=== PATIENT | female | born 1960 | race Caucasian/White ===

== ENCOUNTER → 2017-10-29 | Day surgery (SDC) | payer OTHER ==
[~2017-10-29] VITALS: Ht 160 cm; Wt 70.3 kg
--- NOTE | 2017-10-29 08:08 | Operative Report ---
Operative/Inv Procedure Report Surgery Date: 10/29/17 Name of Procedure: Right carpal tunnel release Pre-Operative Diagnosis: Right carpal tunnel syndrome Post-Operative Diagnosis: Same Estimated Blood Loss: scant Surgeon/Hospital Scientist: Emmett Silva MD Anesthesia: local monitored anesthesi IV Fluids: See anesthesia record Implants: None Drains: None Specimens: None Tourniquet: 13 minutes Complications: None Condition: Stable Operative Indication: Patient is a pleasant 57-year-old [id number] female who has documented carpal tunnel syndrome on EMG nerve conduction studies. She is failed conservative treatment including night splints and use of Kenalog injections into the carpal tunnel. She is indicated for surgical decompression of median nerve. Operative/Procedure Note Note: Once informed consent was obtained and the correct limb was identified the patient brought to operative room placed on table supine position. After the administration of sedation the patient had local anesthesia infiltrated around the planned incision site of the right hand. The right hand was prepped and draped in usual sterile fashion after placement of tourniquet. The tourniquet was inflated to 250 mmHg. An incision was made in line with the radial border of the fourth ray. Sharp dissection carried down through skin and subcutaneous tissue and fat. The deep palmar fascia was incised. A [place] elevator was then placed deep to the transverse carpal ligament to protect the nerve and tendons. The ligament was incised sharply with a #15 blade without, location. This was carried out [place] and distally for complete release. The wound was copiously irrigated with sterile saline. The incision was closed with 3-0 nylon interrupted sutures of sterile dressings applied. Patient was awakened taken recovery in stable condition.
== END ==
LOC: STS 02:39
DX: G56.01 Carpal tunnel syndrome, right upper limb (principal); I10 Essential (primary) hypertension; K21.9 Gastro-esophageal reflux disease without esophagitis
CPT/HCPCS: J0690; J2001; J2250; J3490

== ENCOUNTER → 2018-01-07 | Day surgery (SDC) | payer OTHER ==
--- NOTE | 2018-01-07 08:12 | Operative Report ---
Operative/Inv Procedure Report Surgery Date: 01/07/18 Name of Procedure: Left carpal tunnel release Pre-Operative Diagnosis: Left carpal tunnel syndrome Post-Operative Diagnosis: Same Estimated Blood Loss: none Surgeon/Organ Builder: Emmett iSlva MD Anesthesia: moderate sedation IV Fluids: See anesthesia record Implants: None Drains: None Specimens: None Tourniquet: 13 minutes Complications: None Condition: Stable Operative Indication: Patient is a 57-year-old female who has documented left carpal tunnel syndrome due to repetitive motion at work. She is failed conservative treatment with night splints and injections and wished to proceed with surgical intervention. The risks and benefits the procedure were discussed with the patient in detail. Operative/Procedure Note Note: Once informed consent was obtained and the correct limb was identified the patient brought to the operating room placed on table in supine position. After administration of local anesthesia and sedation the left upper extremity had a tourniquet placed and was prepped and draped in the usual sterile fashion. To begin the procedure procedure a skin incision was made in line with the radial border of the fourth ray in the palm of the hand. Sharp dissection carried down through the skin and subcu tissue.. The deep palmar fascia was incised. A [place] elevator was then placed deep to the transverse carpal ligament and the transverse carpal ligament was incised sharply with a #15 blade with care to avoid any nerve risks or tendinous structures. The incision was carried out proximally and distally for complete transection and decompression of the median nerve. The wound was copiously irrigated with sterile saline. The skin incisions closed with #3 nylon interrupted sutures. A sterile dressing was applied and the patient was awakened and taken recovery in stable condition.
== END ==
LOC: STS 03:22
DX: G56.02 Carpal tunnel syndrome, left upper limb (principal); I10 Essential (primary) hypertension
CPT/HCPCS: J0690; J2250